=== PATIENT | male | born 1955 | race Caucasian/White ===

== ENCOUNTER 2020-10-12 10:52 | Day surgery (SDC) | payer MEDICARE ==
[~2020-10-12] VITALS: Ht 165.1 cm; Wt 75.4 kg
[~2020-10-12 10:52] MED LIST: ACYC800; AMLODIPINE-OLM1 EAC2; ATOR40TA; BENZ100A; LEVSOD75; OMEP20ER
[2020-10-12] MEDS ORDERED: ESZO1 (11:14)
[2020-10-12] MEDS ORDERED: ASPIR 8181 M1 (11:14)
[2020-10-12] MEDS ORDERED: Triamcinolone A15 GM (11:16)
--- NOTE | 2020-10-12 11:25 | NUR ---
10/12/20 1125 EDDIE CONTRERAS ONE ATTEMPT BY RN IN RH VALVE ONE SUCCESSFUL IN RW BY JUAN LAW TOW
== END 2020-10-12 12:35 | disposition home or self-care (01) ==
LOC: ORSCSDS 10:52
PROVIDERS: Internal Medicine Gastroenterology
PROC: 0DB68ZX Excision of Stomach, Via Natural or Artificial Opening Endoscopic, Diagnostic (ICD-10-PCS; principal; 2020-10-12 12:00)
PROC: 0DBN8ZX Excision of Sigmoid Colon, Via Natural or Artificial Opening Endoscopic, Diagnostic (ICD-10-PCS; principal; 2020-10-12 12:00)
DX: K21.9 Gastro-esophageal reflux disease without esophagitis (principal); K29.80 Duodenitis without bleeding; Q00-Q99 Congenital malformations, deformations and chromosomal abnormalities; K63.5 Polyp of colon; K57.30 Diverticulosis of large intestine without perforation or abscess without bleeding; K64.8 Other hemorrhoids; Z12.11 Encounter for screening for malignant neoplasm of colon; Z86.010 Personal history of colon polyps; Z79.899 Other long term (current) drug therapy
CPT/HCPCS: 88305; 88342; J2704; J7120